=== PATIENT | female | born 1945 | race Caucasian/White ===

== ENCOUNTER 2016-12-11 11:33 | Emergency (ER) | payer MEDICARE, BC ==
--- NOTE | ~2016-12-11 | CT2 ---
[facility] A Service of [facility] & [facility] RADIOLOGY TEXT RESULTS PATIENT: LIZBETH PARK LOCATION: [facility] : 41 UNIT #: [id number] AGE: [address]: Ronal Salguero MD SEX: F ORDER DR: [id number] [facility] [address] [place], [place] [address] [id number] MR#: [id number] Acc #: [id number] NAME: LIZBETH PARK. : 1945 SEX: F STUDY DATE/TIME: 12/11/2016 14:47 UNIT: [facility] ROOM: STUDY DESCRIPTION: CT Abd and Pelv W Cont Attending Physician: Ronal Salguero M.D. Ordering Physician: Ronal Salguero M.D. Primary Care Physician: Shaan Mccoy M.D. MEDICAL IMAGING REPORT This report is preliminary unless electronic signature is present EXAM CT abdomen and pelvis, 12/11/2016 HISTORY Pelvic pain for 1 month, cramps, fullness and pressure, sent by Taty, prolapsed bladder, scheduled for hysterectomy and bladder repair December 21, 2016. TECHNIQUE CT abdomen and pelvis performed with administration of 100 mL Isovue-370 intravenously. Enteric contrast not administered. Comparison 10/08/2009. This CT exam was performed with one or more of the following radiation dose reduction techniques: Automatic exposure control, adjustment of mA and/or kV according to patient size, and iterative reconstruction. FINDINGS Linear scarring or atelectasis at the left lung base. No focal suspicious hepatic parenchymal abnormalities seen. There is a subcapsular subcentimeter 4 mm focus hypodensity in segment VIII of the liver, most likely a small cyst. No change from 2009. There is moderate intrahepatic biliary ductal dilatation, more pronounced than on prior study. The extrahepatic common duct measures about 1.2 cm in diameter, previously 1 cm in diameter. No obstructing process is seen. Ductal prominence extends to the level of the ampulla of Vater. This may be physiologic in nature in this patient status post cholecystectomy. There is no pancreatic ductal dilatation. Rim-calcified cyst in the spleen, unchanged. Pancreas unremarkable. Adrenal glands normal. Kidneys normal. Posterior Bochdalek hernia on the right containing only fat. CT PELVIS: No inguinal adenopathy. Urinary bladder unremarkable. Uterus and adnexal regions normal in appearance for a patient of this age. No pelvic fluid collection. No pelvic or retroperitoneal adenopathy. Distal STS. [facility] A Service of [facility] RADIOLOGY TEXT RESULTS PATIENT: LIZBETH PARK LOCATION: [facility] : 41 UNIT #: [id number] AGE: [address]: Ronal Salguero MD SEX: F ORDER DR: esophagus, stomach, small bowel unremarkable. Appendix normal. Colon shows uncomplicated colonic diverticulosis. Aorta normal in caliber. There are atherosclerotic arterial calcifications. There is pelvic floor laxity. The most distal rectum extends approximately 2 cm below the pubococcygeal line. No acute appearing colonic abnormality. The bony structures show degenerative changes, most pronounced in the lower lumbar spine. No acute appearing bony abnormality. IMPRESSION 1. No clearly acute abnormalities seen in the abdomen or pelvis. 2. Patient is status post cholecystectomy. There is moderate intra- and extrahepatic biliary ductal dilatation. This is more pronounced than in 2010. The extrahepatic duct measures about 12 mm in diameter, previously 1 cm. No obstructing process is seen and there is no pancreatic ductal dilatation. I favor this is physiologic in nature and related to prior cholecystectomy. Correlate with laboratory data. If further imaging of the biliary tree would assist in management, consider elective MRCP. 3. Uncomplicated colonic diverticulosis. 4. Pelvic floor laxity. The most distal rectum extends below the pubococcygeal line by approximately 2 cm. There is no indication of resulting complication at this time. 5. Kidneys normal. Appendix normal. 6. Uterus and adnexal regions unremarkable. 7. Stable right-sided Bochdalek hernia containing only fat. 8. Stable rim-calcified splenic cyst. 9. Degenerative changes in the spine. Dictated by... Kulwant Poole M.D. THIS IS AN ELECTRONICALLY VERIFIED REPORT Kulwant Poole M.D. at 12/12/2016 5:40 PM ANN/pato TD: 12/11/2016 23:41 JOB #: [id number] MEDICAL IMAGING REPORT Page 1 of 1 COPY
--- NOTE | ~2016-12-11 | EKG ---
PATIENT: LIZBETH PARK UNIT #: [id number] Ventricular Rate: 80 BPM Atrial Rate: 80 BPM P-R Interval: 176 ms QRS Duration: 90 ms Q-T Interval: 386 ms QTC Calculation(Bezet): 445 ms P [place]: 68 degrees Calculated R [place]: 18 degrees Calculated T [place]: 57 degrees Diagnosis Line: Normal sinus rhythm Diagnosis Line: Low voltage QRS Diagnosis Line: Borderline ECG Diagnosis Line: No previous ECGs available Diagnosis Line: Confirmed by ELOY SCHAEFFER MD ([id number]) on 12/12/2016 Diagnosis Line: 5:42:44 AM INTERPRETING MD: MAKSIM ARANA
[~2016-12-11 11:33] MED LIST: LOPRESSOR PO; LUMIGAN OU; NASACORT AQ16.5 GM; PROTONIX IV; REFRESH OP; REGLAN PO; SYMBICORT INH; SYNTHROID PO
[2016-12-11 12:42] LABS: BASOPHIL% 0.9 % (0-2.5); EOSINOPHIL# 0.2 X10e3 (0-0.7); EOSINOPHIL% 3.4 % (0.0-7.0); HEMATOCRIT 41.7 % (35.0-45.0); HEMOGLOBIN 13.7 gm/dL (12.0-16.0); LYMPHOCYTE# 1.6 X10e3 (1.0-3.5); LYMPHOCYTE% 27.4 % (17.0-45.0); MEAN CELL VOLUME 88.3 FL (83-96); MEAN CORPUSCULAR HEMOGLOBIN 29.1 PG (28-34); MEAN CORPUSCULAR HGB CONC 32.9 g/dL (30-36); MONOCYTE# 0.4 X10e3 (0-1.0); MONOCYTE% 6.8 % (3.0-12.0); NEUTROPHIL# 3.5 X10e3 (1.5-7.1); NEUTROPHIL% 61.5 % (40-75); PLATELET COUNT 254 X10e3 (140-420); RED BLOOD COUNT 4.73 X10e (3.90-5.30); RED CELL DISTRIBUTION WIDTH 14.6 % (11.0-15.5); WHITE BLOOD COUNT 5.7 X10e3 (4.0-10.5)
[2016-12-11 12:46] LABS: DIFF IND NO
[2016-12-11 12:48] LABS: URINE SOURCE CLEAN CATCH
[2016-12-11 12:56] LABS: URINE APPEARANCE CLEAR; URINE BILIRUBIN NEG (NEG); URINE BLOOD NEG (NEG); URINE GLUCOSE NEG (NEG); URINE KETONE NEG (NEG); URINE LEUKOCYTE ESTERASE TRACE (NEG); URINE NITRATE NEG (NEG); URINE PROTEIN NEG (NEG); URINE UROBILINOGEN 0.2 MG/DL (NEG)
[2016-12-11 12:59] LABS: URBCS1 AUWI 0-2 /[HPF] (0-2); URINE BACTERIA AUWI NEG (NEGATIVE); URINE SQUAMOUS EPITHELIAL CELL OCC /[HPF]; UWBCS1 AUWI 0-2 (0-5)
[2016-12-11 13:09] LABS: POC - CKMB 1.9 ng/mL (0.0-7.9); POC - TROPONIN <0.05 ng/mL (<=0.05)
[2016-12-11 13:09] LABS: CULTURE INDICATED? NO; URINE COLOR GREEN
[2016-12-11 13:17] LABS: ALBUMIN SERUM 4.4 g/dL (3.5-5.0); BILIRUBIN, DIRECT 0.1 mg/dL (0.0-0.2); BILIRUBIN,INDIRECT 0.3 mg/dL (0.0-0.9); BILIRUBIN,TOTAL 0.4 mg/dL (0.2-2.0); BUN/CREATININE RATIO 31.66; CALCIUM SERUM 9.3 mg/dL (8.4-10.2); CREATININE SERUM 0.6 mg/dL (0.6-1.4); GLOM FILT RATE Estimated 90.4 mL/min (>60); POTASSIUM 3.9 mmol/L (3.5-5.1); PROTEIN TOTAL SERUM 7.9 g/dL (6.0-8.3)
== END 2016-12-11 17:19 | disposition home or self-care (01) ==
LOC: CED 11:33
PROVIDERS: Emergency Medicine
DX: R10.2 Pelvic and perineal pain (principal); G89.29 Other chronic pain
CPT/HCPCS: 36415; 74177; 80048; 80076; 81003; 82553; 83690; 84484; 85025; 93005; 96361; 96374; 96375; 99284; J1885; J2270; Q9967